=== PATIENT | female | born 1985 | race African-American/Black ===

== ENCOUNTER 2017-09-29 01:41 | Inpatient (IN) | payer OTHER ==
[~2017-09-29] VITALS: Ht 175.3 cm; Wt 155.1 kg
[2017-09-29] VITALS (19 sets, daily range): BP systolic 117–149; BP diastolic 61–87
--- NOTE | ~2017-09-29 | HC ---
[facility] [place] [address] CONSULTATION Name: MILAGRO SMITH Room #: 241-P [facility] IN M.R.#: [id number] Admission: 09/29/17 Attend Phys: Sheng Corrales MD Discharge: 09/30/17 Date of : 87 Report #: [id number] THIS REPORT FOR: //name// CC: Saurav Calvo DATE OF SERVICE: 09/29/2017 HISTORY OF PRESENT ILLNESS: This is a 32-year-old female patient who was evaluated by me for altered mental status. When I walked in the room, the patient was having very unusual jerking with frothing from her mouth. Both jerking and frothing were very unusual. She kept having that. Her oxygen saturation was well maintained. Vital signs were well maintained. I ordered 1 mg of Ativan. After a few minutes, her symptoms completely resolved and she had no postictal periods and she was feeling back to her baseline. Now, she does have diplopia on looking towards the left and that is real, but she indicates she had it all her life. The nurses tell me that she had a similar episode at 7:00 this morning and she got another milligram of Ativan at that time. I talked to the nurses looking after this patient and I talked to Dr. Corrales who is the admitting doctor. From the record, it looks like she has a pretty significant psychiatric history. Her psychiatric medication has been changed; especially Lamictal has been changed, although the events had been summarized in detail in the patient's HPI. She has taken tramadol in the past. Her Lamictal dose has been increased, but still it is 400 mg, but she does not divide it into total dosages and it does not look like she takes the long acting Lamictal. REVIEW OF SYSTEMS: A 14-point review of systems was carried out and is positive for anxiety, bipolar disorder, depression, etc. Family indicates she has no history of seizure disorder. Nurses tell me that she is on telemetry and it does not look like that her rhythm of the heart has changed any. This was her relevant 14-point review of systems. PAST MEDICAL HISTORY: Negative for seizures according to the family. FAMILY HISTORY: Also negative for epilepsy. SOCIAL HISTORY: She indicates she drinks alcohol only on social basis. PHYSICAL EXAMINATION: The patient's examination was carried out multiple times. Initially, she was doing what has been described above. Subsequently, she woke up and she was able to answer what she knows what month it is, what year it is. This is within a few minutes of having her second episode of the day. The cranial nerve examination 2-12 is abnormal and she does have diplopia when she looks towards the left, but according to her, this is old. Her cooperation with [address] [address] CONSULTATION Name: MILAGRO SMITH Room #: 241-P [facility] IN .R.#: [id number] Admission: 09/29/17 Attend Phys: Sheng Corrales MD Discharge: 09/30/17 Date of : 87 Report #: [id number] rest of the exam is very poor, but it looks like she moves both sides. She has no meningeal sign. There is no carotid bruit. Cardiac examination is unremarkable. Respiratory is unremarkable. Blood pressure is 136/76, respirations 18, pulse is 97, temperature is 98.8. LABORATORY DATA: Her white count is normal at 7.3. She did not have any imaging study in this hospital. IMPRESSION: It is not clear whether the episode she is having is seizures or pseudoseizure. I have ordered a stat EEG and talked to the chemical radiation technician and we will see if EEG shows any activity. If EEG does not show any activity, then the possibility of pseudoseizure need to be considered. This patient is a heavy set individual who is predisposed to sleep apnea. She may need more Ativan and she may be predisposed to sleep apnea and she continued to have these spells. Because of that, I talked to the admitting physician that until the diagnosis is certain in this patient and until the need for benzodiazepines is decreased, I think she should be in the ICU to monitor especially this is because of her second spell. He is agreeable with that and is going to make arrangement to transfer to ICU. Neurologically my recommendation and plan is that I will look at the EEG and dictate an addendum next to this consult. If EEG does not show any seizure activity, I would like to get an MRI done to make sure that the extraocular abnormality she has is old. In that case, I think she should have a psychiatric evaluation. All of it was discussed with the patient in great detail and we will see what this workup shows. Thank you very much for this referral. <ELECTRONICALLY SIGNED> By: Alexander Worrell MD 10/09/17 1145 [id number] Alexander Worrell MD /nt
--- NOTE | ~2017-09-29 | D ---
[facility] [place] [address] DISCHARGE SUMMARY Name: MILAGRO SMITH Room #: 241-P [facility] IN M.R.#: [id number] Admission: 09/29/17 Attend Phys: Sheng Corrales MD Discharge: 09/30/17 Date of : 87 Report #: [id number] THIS REPORT FOR: //name// CC: Sheng Calvo DATE OF SERVICE: 09/30/2017 HISTORY OF PRESENT ILLNESS: The patient is a 32-year-old female who presented to the outside hospital emergency room with a seizure activity. The patient was transferred here for further evaluation. The patient has history of anxiety, bipolar disease, and depression. She has no history of seizure disorder. Please refer to the admission H and P for details. HOSPITALIZATION COURSE: The patient was hospitalized here for postictal mental status. When I saw the patient, she was already awake. Neurologist was consulted. Another seizure episode was witnessed last night. Differential diagnosis included epilepsy versus pseudoseizures. Neurologist recommended MRI of the brain, that was done and was negative. Also, it was recommended the patient to have video EEG monitoring. Because we cannot provide the service here, the patient will be transferred to the [facility]. Currently, the patient's condition is stable for the transfer. DISCHARGE DIAGNOSIS: Seizure, pseudoseizure versus epilepsy. Negative MRI. Unremarkable workup. Further evaluation with video EEG monitoring. Medication at the transfer, please refer to medication reconciliation list. <ELECTRONICALLY SIGNED> By: Sheng Corrales MD 10/01/17 0709 [id number] Sheng Corrales MD /nt
--- NOTE | ~2017-09-29 | EEG ---
[facility] [place] [address] ELECTROENCEPHALOGRAM Name: MILAGRO SMITH Room #: 241-P [facility] IN M.R.#: [id number] Admission: 09/29/17 Attend Phys: Salma España Discharge: 09/30/17 Date of : 86 Report #: [id number] THIS REPORT FOR: //name// CC: Saurav Calvo DATE OF SERVICE: 09/29/2017 This patient is being evaluated for seizure. In fact, this patient had 2 seizures. EEG was done by placing the electrodes by standard 10-20 system of electrode placement. Both referential and sequential montages were used for recording. Background activity in this patient's EEG is about 9-10 Hz and 40 microvolt. The patient goes to sleep that is associated with bilaterally symmetrical sleep spindle and vertex sharp waves. Photic stimulation is unremarkable. Throughout the record, no active epileptiform activity was noticed. IMPRESSION: This patient's electroencephalogram is within normal limits. No active epileptiform activity was noticed during this record. Furthermore, no postictal slowing was noticed during this record. That will be unusual after having 2 epileptic seizures. Because of this EEG and because of the observation of second seizure, which was witnessed by me, the possibility of pseudoseizures needs to be considered in this patient. Thank you very much for this referral. <ELECTRONICALLY SIGNED> By: Alexander Worrell MD 10/09/17 1146 1704 1715 MD florentino Polo
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
[~2017-09-29 01:41] MED LIST: APAP500 PO; COLACE 100 MG100 MG PO; DERMOPLAST SPRA56 ML; IBUPROFEN 800800 M1 PO; IRON325 PO; KEFLEX500 MG PO; MACROBID 100 M100 M1 PO; MIRALAX255 GM PO; PRENATAL TABLE1 EAC3 PO; TUCKS MEDICATE1 EAC1; TUMS CHEWA500 MG/11 PO; ULTRAM 50MG TAB50 MG PO; ZOFRAN ODT4 MG PO
[2017-09-29] MEDS ORDERED: CELEXA40 MG PO (03:24)
[2017-09-29] MEDS ORDERED: LAMICTAL100 MG PO (03:25)
[2017-09-29 10:03] LABS: BASOPHILS 0.8 % (0.0-2.0); EOSINOPHILS 5.3 % (0.0-3.0); HEMATOCRIT 33.9 % (37.0-47.0); HEMOGLOBIN 10.8 gm/dL (12.0-15.0); LYMPHOCYTES 29.6 % (24.0-44.0); MCH 24.2 pg (26.0-34.0); MCHC 31.7 g/dL (28.0-37.0); MCV 76.2 fL (80.0-100.0); MONOCYTES 9.5 % (1.0-8.0); PLATELET COUNT 345 thou/uL (150-400); POLYS 54.8 % (36.0-66.0); RBC 4.45 mil/uL (4.20-5.00); RDW 15.3 % (10.5-14.5); WBC 7.3 thou/uL (4.0-11.0)
[2017-09-30] VITALS (16 sets, daily range): BP systolic 104–134; BP diastolic 60–80
[2017-09-30 04:50] LABS: HEMATOCRIT 32.4 % (37.0-47.0); HEMOGLOBIN 10.3 gm/dL (12.0-15.0); MCH 24.5 pg (26.0-34.0); MCHC 31.8 g/dL (28.0-37.0); MCV 76.8 fL (80.0-100.0); RBC 4.22 mil/uL (4.20-5.00); RDW 15.3 % (10.5-14.5); WBC 5.6 thou/uL (4.0-11.0)
[2017-09-30 05:02] LABS: CALCIUM 8.6 mg/dL (8.5-10.1); CREATININE 1.3 mg/dL (0.6-1.0); TOTAL BILIRUBIN 0.3 mg/dL (<0.1-1.0); TOTAL PROTEIN 6.6 g/dL (6.4-8.2)
== END 2017-09-30 17:21 | disposition short-term general hospital (02) | DRG 101 ==
LOC: 3W 01:41 → ICU 02:47
PROVIDERS: Internal Medicine Endocrinology, Diabetes & Metabolism; Nurse Practitioner Acute Care
DX: G40.909 Epilepsy, unspecified, not intractable, without status epilepticus (principal); N17.9 Acute kidney failure, unspecified; F31.9 Bipolar disorder, unspecified; F41.8 Other specified anxiety disorders; Z79.899 Other long term (current) drug therapy; Z83.3 Family history of diabetes mellitus
CPT/HCPCS: 10078

== ENCOUNTER 2017-11-10 01:55 | Emergency (ER) | payer OTHER ==
[~2017-11-10] VITALS: Ht 172.7 cm; Wt 136.1 kg
[~2017-11-10 01:55] MED LIST changes: +CELEXA40 MG PO; +LAMICTAL100 MG PO
[2017-11-10] MEDS ORDERED: GEODON20 MG PO (01:59)
[2017-11-10 02:28] LABS: ABSOLUTE NEUTROPHILS 3.3 thou/uL (1.4-8.2); BASOPHILS 0.7 % (0.0-2.0); EOSINOPHILS 7.7 % (0.0-3.0); HEMATOCRIT 34.8 % (37.0-47.0); HEMOGLOBIN 11.1 gm/dL (12.0-15.0); LYMPHOCYTES 32.6 % (24.0-44.0); MCH 23.8 pg (26.0-34.0); MCHC 31.9 g/dL (28.0-37.0); MCV 74.7 fL (80.0-100.0); PLATELET COUNT 312 thou/uL (150-400); RBC 4.65 mil/uL (4.20-5.00); RDW 14.6 % (10.5-14.5); WBC 6.8 thou/uL (4.0-11.0)
[2017-11-10 02:34] LABS: ANION GAP 9 mmol/L (7-16); BUN 18 mg/dL (7-18); CALCIUM 8.9 mg/dL (8.5-10.1); CHLORIDE 101 mmol/L (98-107); CO2 27 mmol/L (21-32); CREATININE 0.9 mg/dL (0.6-1.0); GLUCOSE 107 mg/dL (74-106); POTASSIUM 3.7 mmol/L (3.5-5.1); SODIUM 137 mmol/L (136-145)
[2017-11-10] MEDS ORDERED: MELOXICAM7.5 MG PO (02:35)
[2017-11-10 02:41] LABS: ALBUMIN 3.2 g/dL (3.4-5.0); DIRECT BILIRUBIN < 0.1 mg/dL (<0.1-0.3); SGOT 18 U/L (15-37); SGPT 26 U/L (30-65); TOTAL BILIRUBIN 0.1 mg/dL (<0.1-1.0); TOTAL PROTEIN 7.1 g/dL (6.4-8.2)
[2017-11-10] MEDS ORDERED: PRILOSEC 20 MG20 MG PO (03:04)
[2017-11-10 03:38] LABS: URINE BILIRUBIN NEGATIVE (Negative); URINE BLOOD NEGATIVE (Negative); URINE CLARITY SL CLOUDY; URINE COLOR YELLOW; URINE GLUCOSE-RANDOM* NEGATIVE (Negative); URINE KETONES NEGATIVE (Negative); URINE LEUKOCYTES TRACE (Negative); URINE NITRITE NEGATIVE (Negative); URINE PROTEIN (DIPSTICK) NEGATIVE (Negative)
== END 2017-11-10 03:45 | disposition home or self-care (01) ==
LOC: ER 01:55
PROVIDERS: Emergency Medicine
DX: G40.89 Other seizures (principal); F41.9 Anxiety disorder, unspecified; F31.9 Bipolar disorder, unspecified